=== PATIENT | male | born 1990 | race Caucasian/White ===

== ENCOUNTER 2018-05-12 18:04 | Emergency (ER) | payer OTHER ==
[~2018-05-12] VITALS: Ht 185.4 cm; Wt 77.5 kg
[2018-05-12] MEDS ORDERED: NAPR-885 PO (18:15)
[2018-05-12] MEDS ORDERED: TOPI25TA10 PO (18:15)
--- NOTE | 2018-05-12 19:28 | REP ---
Clinical: Headache and syncope . Comparison: None . Findings: The ventricles, sulci, and cisterns are normal in position and appearance. Senior-white differentiation is maintained. No acute intracranial hemorrhage, mass/mass effect, pathology or trauma/injury. No evidence for acute infarction. No extra-axial fluid collection. Calvarium is intact. Paranasal sinuses and mastoid air cells are clear. Impression: Normal noncontrast head CT. No evidence for acute intracranial pathology or trauma/injury. Electronically Signed by Nuno Santana MD 05/12/2018 07:20 P
[2018-05-12] MEDS ORDERED: IBUPROFEN 600 MG TAB PO ONE (19:45)
[2018-05-12] MEDS ORDERED: ACETAMINOPHEN TAB 650MG DOSE (2X325MG) PO ONE (19:45)
[2018-05-12 20:00] VITALS: BP 126/76
--- NOTE | 2018-05-13 06:38 | ECGEPIP ---
Stationary ECG Study [facility] - ED Test Date: 2018-05-12 Pat Name: HODAN LIZARRAGA Department: Room: - Gender: M Senior Systems Software Engineer: : [id number] Requested By: ULISSES CHOUDHARY PA-C. Order Number: [id number] Reading MD: Sri Krishnamurthy Measurements Intervals [place] Rate: 59 P: 55 GA: 141 QRS: 85 QRSD: 116 T: 52 QT: 404 QTc: 403 Interpretive Statements SINUS BRADYCARDIA WITH MARKED SINUS ARRHYTHMIA MODERATE INTRAVENTRICULAR CONDUCTION DELAY EARLY REPOLARIZATION NO OLD ECG FOR COMPARISON Electronically Signed On 05-13-2018 6:38:04 EDT by Sri Krishnamurthy
== END 2018-05-12 20:17 | disposition home or self-care (01) ==
LOC: M ED 18:04
DX: R55 Syncope and collapse (principal); R00.1 Bradycardia, unspecified; I45.4 Nonspecific intraventricular block; Z79.899 Other long term (current) drug therapy